=== PATIENT | female | born 1970 | race American Indian/Alaskan Native ===

== ENCOUNTER 2017-06-16 07:04 | Outpatient (CLI) | payer OTHER ==
--- NOTE | 2017-06-16 08:09 | Mammography Report ---
Bilateral mammogram: No previous studies available. CAD study utilized. Findings: Heterogeneous breast parenchyma bilaterally. Focal calcification right breast. No mass. Normal axilla. Impression: Focal calcification right breast. Comparison with previous studies is recommended. If previous studies are not available spot mag is advised. BI-RADS CATEGORY: 0 = Needs additional imaging evaluation ACR BI-RADS MAMMOGRAPHIC CODES: 0 = Needs additional imaging evaluation; 1 = Negative; 2 = Benign; 3 = Probably benign; 4 = Suspicious; 5 = Malignant; 6 = Known biopsy-proven malignancy COMMENT: 1. Dense breast tissue, i.e., adenosis, fibrocystic changes, etc., may obscure an underlying neoplasm. 2. Approximately 10% of cancers are not detected with mammography. 3. A negative mammography report should not delay biopsy if a clinically suspicious mass is present. COMMENT: Patient follow-up letters are generated in [employer].
== END 2017-06-16 07:05 | disposition home or self-care (01) ==
LOC: MAMMO 07:04
PROVIDERS: ATTEND Internal Medicine
DX: Z12.31 Encounter for screening mammogram for malignant neoplasm of breast (principal)
CPT/HCPCS: 77067; G0202

== ENCOUNTER 2018-04-15 09:43 | Outpatient (CLI) | payer OTHER ==
--- NOTE | 2018-04-15 10:33 | Mammography Report ---
BILATERAL DIGITAL DIAGNOSTIC MAMMOGRAM with CAD: 04/15/18 09:43:00 CLINICAL: Previous abnormal mammogram. COMPARISON:06/16/17 FINDINGS: The breasts are heterogeneously dense, which may obscure small masses. A stable group of right calcifications at 9 o'clock. There are four calcifications with no suspicious forms.No mass, architectural distortion or suspicious calcifications. IMPRESSION: No mammographic evidence of malignancy.Benign right calcifications. BI-RADS CATEGORY: 2 - - Benign RECOMMENDATION: Routine mammographic screening in one year. ACR BI-RADS MAMMOGRAPHIC CODES: 0 = Needs additional imaging evaluation; 1 = Negative; 2 = Benign; 3 = Probably benign; 4 = Suspicious; 5 = Malignant; 6 = Known biopsy-proven malignancy COMMENT: 1. Dense breast tissue, i.e., adenosis, fibrocystic changes, etc., may obscure an underlying neoplasm. 2. Approximately 10% of cancers are not detected with mammography. 3. A negative mammography report should not delay biopsy if a clinically suspicious mass is present. COMMENT: Patient follow-up letters are generated by our [employer] application.
== END 2018-04-15 09:44 | disposition home or self-care (01) ==
LOC: MAMMO 09:43
PROVIDERS: ATTEND Internal Medicine
DX: R92.8 Other abnormal and inconclusive findings on diagnostic imaging of breast (principal)
CPT/HCPCS: 77066